=== PATIENT | female | born 1995 | race Caucasian/White ===

== ENCOUNTER 2017-03-20 17:09 | Emergency (ER) | payer SELFPAY ==
[~2017-03-20] VITALS: Ht 157.5 cm; Wt 68.2 kg
[~2017-03-20 17:09] MED LIST: CLIN1CAP5 PO; DEPO150I IM; IBUP800T23 PO; PERI0.126 SWISH-SPIT
[2017-03-20 17:11] VITALS: BP 123/79; PULSE 68; RESP 12; TEMP 98.7; O2SAT 98
--- NOTE | 2017-03-20 17:23 | PD ---
Physical Exam Date Seen by Provider: Mar 20, 2017 Time Seen by Provider: 17:20 Data Data Last Documented VS Vital Signs Date Time Temp Pulse Resp B/P Pulse Ox O2 Delivery O2 Flow Rate FiO2 03/20/17 17:11 98.7 68 12 123/79 98 MDM Supervised Visit with ALYCIA: No Narrative Course 21 YO F with complaint of dysuria and lower abdominal pain and cramping since this AM. Rated 8/10 on presentation. Endorses vaginal bleeding described as "spotting" x a few days. States pain is constant throughout the day. ---N/V, F/C. LMP "on depo, I don't have a period." Vitals reviewed. Patient seen in triage, awaiting bed placement. Ava Stevens Mar 20, 2017 17:23
[2017-03-20 18:26] LABS: BACTERIA, URINE OCC /hpf; BLOOD, URINE MOD (NEG); COMMENT (UR) CULTURE INDICATED; CULTURE IF INDICATED CULTURE INDICATED; GLUCOSE,URINE NEG (NEG); KETONE, URINE NEG (NEG); SQUAMOUS EPITHELIAL CELL URINE 4 /hpf (0-5); URINE COLOR YELLOW (YELLW/STRAW)
[2017-03-20 18:33] LABS: NITRITE,URINE POS (NEG)
[2017-03-20 18:46] VITALS: BP 118/79; PULSE 62; RESP 19; O2SAT 100
[2017-03-20] MEDS ORDERED: MACR100C2 PO (19:26)
[2017-03-20] MEDS ORDERED: TYLE325T PO (19:26)
--- NOTE | 2017-03-20 19:26 | PD ---
HPI Chief Complaint: Abdominal Pain Time Seen by Provider: 18:55 Travel History International Travel<30 days: No Contact w/Intl Traveler<30days: No Traveled to known affect area: No History of Present Illness HPI 21yo F with no significant PMH presents to the ED with c/o pain with urination today and suprapubic pain. Denies any fever, chest pain, sob, nausea, vomiting , vaginal discharge. Pt states she does have vaginal bleeding and is on depo provera. PFSH Past Medical History ?: Not LMP: 2010 Past Surgical History Oral Surgery: Yes (wisdom teeth) Tonsillectomy: Yes Social History Alcohol Use: Yes (social) Tobacco Use: Yes (3 cigarettes a day) Substance Use: Yes (marijuana yesterday) Allergies-Medications (Allergen,Severity, Reaction): Coded Allergies: No Known Allergies (Unverified , 03/20/17) Reported Meds & Prescriptions Reported Meds & Active Scripts Active Tylenol (Acetaminophen) 325 Mg Tab 650 Mg PO Q6H PRN Macrobid (Nitrofurantoin Monoh/Nitrofur Macro) 100 Mg Cap 100 Mg PO BID 7 Days Review of Systems Except as stated in HPI: all other systems reviewed are Neg Physical Exam Narrative GENERAL: 21yo F not in distress. SKIN: Focused skin assessment warm/dry. HEAD: Atraumatic. Normocephalic. CARDIOVASCULAR: Regular rate and rhythm. No murmur appreciated. RESPIRATORY: No accessory muscle use. Clear to auscultation. Breath sounds equal bilaterally. GASTROINTESTINAL: Abdomen soft, +Suprapubic ttp. No RLQ ttp. No rebound tenderness or guarding. BACK: No CVA tenderness bilaterally. PELVIC: Deferred. MUSCULOSKELETAL: No obvious deformities. No clubbing. No cyanosis. No edema. NEUROLOGICAL: Awake and alert. No obvious cranial nerve deficits. Motor grossly within normal limits. Normal speech. PSYCHIATRIC: Appropriate mood and affect; insight and judgment normal. Data Data Last Documented VS Vital Signs Date Time Temp Pulse Resp B/P Pulse Ox O2 Delivery O2 Flow Rate FiO2 03/20/17 18:46 62 19 118/79 100 Room Air 03/20/17 17:11 98.7 Orders Urinalysis - C+S If Indicated (03/20/17 17:26) Ed Urine Pregnancytest Poc (03/20/17 17:26) Urine Culture (03/20/17 17:35) Nitrofurantoin Monohyd Macrocr (Macrobid (03/20/17 19:30) Acetaminophen (Tylenol) (03/20/17 19:30) Labs Laboratory Tests Test 03/20/17 17:35 Urine Color YELLOW Urine Turbidity HAZY Urine pH 6.0 Urine Specific [place] 1.024 Urine Protein 30 mg/dL Urine Glucose (UA) NEG mg/dL Urine Ketones NEG mg/dL Urine Occult Blood MOD Urine Nitrite POS Urine Bilirubin NEG Urine Urobilinogen LESS THAN 2.0 MG/DL Urine Leukocyte Esterase LARGE Urine RBC 159 /hpf Urine WBC 157 /hpf Urine WBC Clumps FEW Urine Squamous Epithelial 4 /hpf Cells Urine Bacteria OCC /hpf Microscopic Urinalysis Comment CULTURE INDICATED MDM Medical Decision Making Medical Screen Exam Complete: Yes Emergency Medical Condition: Yes Differential Diagnosis Cystitis vs. vs. miscarriage Narrative Course 21yo F here with c/o pain with urination for 1 day. No fever, nausea or vomiting. Urine negative. Pt does not want a pelvic exam. VS stable. UA showed large leukocyte. Positive nitrite. Pt given macrobid 100mg PO and acetaminophen for pain. Pt reevaluated at bedside and feels better. Return precautions given. Diagnosis Primary Impression: UTI (urinary tract infection) Qualified Code: N39.0 - Urinary tract infection with hematuria, site unspecified Patient Instructions: General Instructions Departure Forms: Tests/Procedures Additional Instructions: Please follow up with your PMD in 3-7 days. Return to the ED if symptoms worsen. Med/Other Pt SpecificInfo: Prescription(s) given Scripts Acetaminophen (Tylenol)325 Mg Hop860 Mg PO Q6H PRN (PAIN SCALE 1 TO 4) #20 TAB Ref 0 Prov:Katelin Lacy DO 03/20/17 Nitrofurantoin Monohydrate Macrocrystals (Macrobid)100 Mg [id number] Mg PO BID 7 Days Ref 0 Prov:BambiKatelin DO 03/20/17 Disposition: 01 DISCHARGE HOME Condition: Stable Katelin Lacy DO Mar 20, 2017 19:26
[2017-03-20] MEDS ORDERED: ACETAMINOPHEN 500 MG CPLT PO ONE (19:30)
[2017-03-20] MEDS ORDERED: NITROFURANTOIN MONOHYD MACROCR 100 MG CAP PO ONE (19:30)
== END 2017-03-20 20:41 | disposition home or self-care (01) ==
LOC: NEPD 17:09
DX: N39.0 Urinary tract infection, site not specified (principal); B96.20 Unspecified Escherichia coli [E. coli] as the cause of diseases classified elsewhere; N93.9 Abnormal uterine and vaginal bleeding, unspecified; F17.210 Nicotine dependence, cigarettes, uncomplicated
CPT/HCPCS: 81001; 84703; 87077; 87086; 87186; 99283